=== PATIENT | male | born 1965 | race African-American/Black ===

== ENCOUNTER 2018-07-05 11:29 | Observation (INO) | payer OTHER ==
[2018-07-05 12:11] LABS: #Eosinphils 0.1 thou/uL (0.0-0.7); #Lymphocytes 1.6 thou/uL (1.20-3.40); #Monocytes 0.7 thou/uL (0.11-0.59); #Neutrophils 2.8 thou/uL (1.40-6.50); %Basophils 0.3 % (0.0-1.0); %Eosinophils 1.6 % (0.0-10.0); %Lymphocytes 30.9 % (21.0-51.0); %Monocytes 13.2 % (0.0-10.0); Mean Corpuscular HGB CONC 32.1 g/dL (32.0-36.0); Mean Corpuscular Hemoglobin 29.9 pg (27.0-31.0); Mean Corpuscular Volume 93.2 fL (78.0-98.0); Mean Platelet Volume 8.3 fL (7.4-10.4); Platelet Count 219 thou/uL (130-400); RBC Distribution Width 12.4 % (11.5-14.5); Red Blood Cell (RBC) Count 4.99 mill/uL (4.70-6.10); White Blood Cell (WBC) Count 5.3 thou/uL (4.8-10.8)
--- NOTE | 2018-07-05 12:35 | RAD ---
CHEST ONE VIEW: Indication: History of chest pain. Comparison: 07-22-12 FINDINGS: The costophrenic angles are excluded. Lungs are clear. Cardiomediastinal silhouette is within normal limits. No acute osseous abnormality is evident. IMPRESSION: No definite acute abnormality. Limitation of the exam as above. POS: [facility]
--- NOTE | 2018-07-05 12:36 | CT ---
CT OF HEAD NONCONTRAST: Indication: Syncope. FINDINGS: There is no acute intracranial mass effect or midline shift. Comparing to 02-22-10, no significant int erval detrimental change is demonstrated. IMPRESSION: No acute intracranial finding. POS: [facility]
[2018-07-05 12:53] LABS: ALT (SGPT) 341 U/L (8-55); AST (SGOT) 680 U/L (5-34); Albumin 3.4 g/dL (3.5-5.0); Alkaline Phosphatase 171 U/L (40-150); Anion Gap 18 mmol/L (10-20); BUN (Urea Nitrogen) 28 mg/dL (8.4-25.7); Bilirubin, Total 1.9 mg/dL (0.2-1.2); CK (CPK) 152 U/L (30-200); Calc. Creatinine Clearance 0 mL/min (70-130); Calcium 8.9 mg/dL (7.8-10.44); Carbon Dioxide 23 mmol/L (22-29); Chloride 105 mmol/L (98-107); Estimated GFR-MDRD 41; Globulin 4.3 g/dL (2.4-3.5); Glucose 85 mg/dL (70-105); Lipase 88 U/L (8-78); Potassium 4.5 mmol/L (3.5-5.1); Protein, Total 7.7 g/dL (6.0-8.3); Sodium 141 mmol/L (136-145)
[2018-07-05 13:04] LABS: CKMB 0.9 ng/mL (0-6.6); Troponin I Less than 0.010 ng/mL (< 0.028)
[2018-07-05] MEDS ORDERED: ISOVUE-370 76%-LOCM 1 ML ONE (13:31)
--- NOTE | 2018-07-05 13:49 | CT ---
CT ARTERIOGRAM CHEST WITH IV CONTRAST AND 3D MIP IMAGING: History: Chest pain. Dyspnea. Comparison: 08-06-11 FINDINGS: There is good contrast opacification of the pulmonary arteries and thoracic aorta with normal branchi ng of the great vessels at the aortic arch. No pleural fluid or mediastinal adenopathy. No evidence o f pneumothorax. IMPRESSION: No CT evidence of pulmonary embolus. POS: [facility]
[2018-07-05 14:06] LABS: Bilirubin Negative (Negative); Blood, Urine Negative (Negative); Clarity CLEAR (Clear); Glucose, Urine (Dipstick) Negative (Negative); Leukocyte Negative (Negative); Nitrite Negative (Negative); Protein, Urine (Dipstick) Trace mg/dL (Neg-Trace); Specific Gravity, Urine 1.011 (1.002-1.036)
--- NOTE | 2018-07-05 14:42 | PDOC.FPRHP ---
- History of Present Illness Chief Complaint: Syncope History of Present Illness: Mr Morejon is a 53yo male with pmh of Alcohol abuse, gout, CKD3, HTN and HLD presenting for syncope. Reports 2 episodes of syncope. First time was Thursday and again today. Prior to event he felt diaphoresis, weak/dizzy, lightheaded and does not remember falling. Falls were witness by family. Had mild "tremoring " of arms, did not hit his head. No hx of seizures or heart problems. He also endorses periodic stabbing substernal chest pain over the last year. Pain is nonexertional and is not currently present. Last time he had the pain was 2 days ago. Not a/w SOB or diaphoresis, resolves on its own. Pt also endorses "pain under my ribs on the right side" for the past 2 years. He drinks 12-18 beers or a large cup of liquor per day for the past 20 years. Denies tylenol use or hx of hepatitis. Does report using BC powder for pain frequently. Endorses 30lb wt loss over the last year due to decreased appetite. ED Course: 500ml NS - Allergies/Adverse Reactions Allergies Allergy/AdvReac Type Severity Reaction Status Date / Time No Known Allergies Allergy Verified 07/05/18 16:49 - Home Medications Medication Instructions Recorded Confirmed Type Allopurinol [Zyloprim] 300 mg PO QAM 07/05/18 07/05/18 History Amlodipine [Norvasc] 10 mg PO QAM 07/05/18 07/05/18 History Atorvastatin Calcium [Lipitor] 40 mg PO QAM 07/05/18 07/05/18 History Metoprolol Succinate 100 mg PO QAM 07/05/18 07/05/18 History - History PMHx: Alcohol abuse, Gout, HTN, CKD3, HLD PSHx: "Knee washout" FHx: CAD, DM Social: Denies tobacco or drug use. Endorses drinking 12-18 beers per night or a large glass of liquor, has done so for >20 years - Review of Systems General: reports: fever/chills, weight/appetite/sleep changes (endorses 30lb wt loss over last year), night sweats, fatigue Eyes: denies: eye pain, vision changes ENT: denies: nasal congestion, rhinorrhea Respiratory: denies: cough, congestion, shortness of breath Cardiovascular: reports: chest pain. denies: palpitation, edema Gastrointestinal: reports: constipation, abdominal pain. denies: nausea, vomiting, diarrhea Genitourinary: denies: dysuria, polyuria Skin: denies: lesions, jaundice Musculoskeletal: denies: pain, tenderness, swelling Neurological: denies: numbness, weakness - Vital signs BP: 140/105 HR: 102 RR: 17 Tmax: 98.3 Pox: 95% on RA Wt: 108.86kg - Physical Exam Constitutional: NAD, awake, alert and oriented, well developed HEENT: normocephalic and atraumatic, PERRLA, no scleral icterus, normal nasal mucosa, MMM, oropharynx clear Neck: supple, trachea midline Heart: RRR, no murmurs/rubs/gallops Lungs: CTAB, no respiratory distress Abdomen: soft, bowel sounds present, other (No hepatomegaly, splenomegaly Mildly tender to palpation in RUQ Neg Amanda sign) Musculoskeletal: normal structure, normal tone Neurological: no focal deficit Skin: capillary refill <2 seconds Psychiatric: normal mood and affect, good judgment and insight, intact recent and remote memory FMR H&P: Results - Labs Result Diagrams: 07/05/18 11:39 07/05/18 11:39 Lab results: WBC 5.3 thou/uL (4.8-10.8) 07/05/18 11:39 Hgb 15.0 g/dL (14.0-18.0) 07/05/18 11:39 Hct 46.5 % (42.0-52.0) 07/05/18 11:39 MCV 93.2 fL (78.0-98.0) 07/05/18 11:39 Plt Count 219 thou/uL (130-400) 07/05/18 11:39 Neutrophils % 54.0 % (42.0-75.0) 07/05/18 11:39 Sodium 141 mmol/L (136-145) 07/05/18 11:39 Potassium 4.5 mmol/L (3.5-5.1) 07/05/18 11:39 Chloride 105 mmol/L (98-107) 07/05/18 11:39 Carbon Dioxide 23 mmol/L (22-29) 07/05/18 11:39 BUN 28 mg/dL (8.4-25.7) H 07/05/18 11:39 Creatinine 2.07 mg/dL (0.6-1.3) H 07/05/18 11:39 Glucose 85 mg/dL (70-105) 07/05/18 11:39 Calcium 8.9 mg/dL (7.8-10.44) 07/05/18 11:39 Total Bilirubin 1.9 mg/dL (0.2-1.2) H 07/05/18 11:39 AST 680 U/L (5-34) H 07/05/18 11:39 ALT 341 U/L (8-55) H 07/05/18 11:39 Alkaline Phosphatase 171 U/L (40-150) H 07/05/18 11:39 Creatine Kinase 152 U/L (30-200) 07/05/18 11:39 CK-MB (CK-2) 0.9 ng/mL (0-6.6) 07/05/18 12:31 B-Natriuretic Peptide 15.5 pg/mL (0-100) 07/05/18 11:39 Serum Total Protein 7.7 g/dL (6.0-8.3) 07/05/18 11:39 Albumin 3.4 g/dL (3.5-5.0) L 07/05/18 11:39 Lipase 88 U/L (8-78) H 07/05/18 11:39 Urine Ketones Negative mg/dL (Negative) 07/05/18 13:26 Urine Blood Negative (Negative) 07/05/18 13:26 Urine Nitrite Negative (Negative) 07/05/18 13:26 Ur Leukocyte Esterase Negative (Negative) 07/05/18 13:26 - EKG Interpretation EKG: NSR - Radiology Interpretation Chest x-ray Status: report reviewed by me Additional comment: No acute abnormality CT scan - head Status: report reviewed by me Additional comment: No acute findings CT scan - chest Status: report reviewed by me Additional comment: No CT evidence of PE FMR H&P: A/P - Problem List (1) Syncope Current Visit: Yes Status: Acute Code(s): R55 - SYNCOPE AND COLLAPSE (2) Atypical chest pain Current Visit: Yes Status: Acute Code(s): R07.89 - OTHER CHEST PAIN (3) Elevated d-dimer Current Visit: Yes Status: Acute Code(s): R79.89 - OTHER SPECIFIED ABNORMAL FINDINGS OF BLOOD CHEMISTRY (4) Transaminitis Current Visit: Yes Status: Acute Code(s): R74.0 - NONSPEC ELEV OF LEVELS OF TRANSAMNS & LACTIC ACID DEHYDRGNSE (5) HTN (hypertension) Current Visit: Yes Status: Acute Code(s): I10 - ESSENTIAL (PRIMARY) HYPERTENSION (6) HLD (hyperlipidemia) Current Visit: Yes Status: Acute Code(s): E78.5 - HYPERLIPIDEMIA, UNSPECIFIED (7) CKD (chronic kidney disease) stage 3, GFR 30-59 ml/min Current Visit: Yes Status: Acute Code(s): N18.3 - CHRONIC KIDNEY DISEASE, STAGE 3 (MODERATE) (8) Gout Current Visit: Yes Status: Acute Code(s): M10.9 - GOUT, UNSPECIFIED - Plan Syncope - likely vasovagal vs orthostatic vs alcohol intoxication - Prolactin neg - Orthostatic VS ordered - Echo ordered - Will admit to tele Transaminitis - ddx includes obstructive vs viral vs alcoholic causes - RUQ US - Viral and Autoimmune hepatitis labs ordered - UDS pending Atypical Chest Pain - Trops, CKMB neg - EKG with no ST segment changes - Continue to trend trops Elevated D-dimer - CTA neg for PE Alcohol Abuse - No known hx of withdrawal - ASE protocol - Librium taper - Will obtain serum alcohol and UDS Hyperbilirubinemia - RUQ US as above CKD3 - Cr 2.03 - Continue to monitor with daily labs - Avoid nephrotoxic drugs Gout - Continue home Allopurinol HTN - Continue home Amlodipine HLD - Continue home Atorvastatin Code Status: FULL DVT ppx: Lovenox 30 FMR H&P: Upper Level - Pertinent history Kahlil Morejon is a 53 year old male with a history of gout, CKD, HLD, and tobacco abuse who presents to the ED due to having recurrent syncopal events. Pt states that he fell to his knees earlier today as he was walking to his mother's house. He states that he felt the room spin, and his knees gave out and he fell to the floor. He states that he had another fall prior to this several days ago that was similar in nature. Each of these episodes were preceded by vertiginous symptoms. He denies LOC, chest pain, palpitations, prior to the fall. No seizure activity or post-ictal state. He also complains of occasional left-sided chest pain that has been ongoing for the past several months. The pain is "sharp/stabbing. He rates it 7-10/10 in intensity. Non-exertional. No exacerbating or relieving factors. Radiates throughout his abdomen. He currently denies having this pain. Of note, Pt has an extensive alcohol abuse history and reports drinking 3 - six packs of beer every night. - Pertinent findings Vitals: T - 98.3 RR -17 P-102 BP - 140/103 O2-95% on RA wt: 109kg Physical Exam General: A&O x 3 HEENT: NCAT; EOMI no nystagmus Heart: RRR, no MRG; No reproducible anterior chest wall tenderness. Lungs: CTAB Abdomen: soft, non-tender to palpation; negative Amanda's sign. Neuro: CN II-XII intact grossly; no focal deficits; symmetric reflexes. BUN: 28 Cr: 2.07 AST: 680 ALT: 341 Alk Phos: 171 Prolactin: 12.43 Lipase: 88 CK: 152 - Plan Date/Time: 07/05/18 7172 I, Mayte Montemayor, have evaluated this patient and agree with findings/plan as outlined by internal control analyst resident. Pertinent changes/additions are listed here. Recurrent falls - possibly deconditioning vs. orthostasis vs. vertigo vs. alcohol intoxication. No structural abnormalities noted on exam. - unlikely secondary to seizures. - pt denies LOC, therefore, may not be truly syncopal. - Will order PT, orthostatic vitals. Atypical chest pain - likely GI related; may consider PPI - will continue to trend trops. Alcohol Abuse - will order ASE protocol. - Ativan taper. Elevated liver function tests - likely secondary to alcohol abuse. - will also order RUQ US. - hepatitis panel. HTN - continue home meds CKD stage III - GFR - 41 - will avoid nephrotoxic medications; may consider changing allopurinol to different agent. Hyperlipidemia - continue statin. Attending Addendum - Attending Addendum Date/Time: 07/05/18 8086 I personally evaluated the patient and discussed the management with Dr. Rinaldi I agree with the History, Examination, Assessment and Plan documented above with any addition or exceptions noted below- 53 yo male with h/o HTN, gout, CKD who presented with 2 episodes of syncope. States that first occurred on Thursday and the other today. In both instances he reports feeling light headed and weak and then fell to the ground with very brief LOC.No seizure activity or incontinence. No prior episodes. Also reports intermittent substernal chest pain with associated diaphoresis. No N/V, abdominal pain, or SOB. PMH/PSH/All/ meds reviewed and agree with residents documentation. Afebrile VSS Exam repeated by me and agree with residents findings. Labs: trop I < 0.010 x2, Cr= 2.07, AST/ALT= 680/341, EKG-NSR, no ST changes. A/P: 1) Syncope- orthostatic vs alcohol intoxication vs cardiac arrhythmia- will check echo, cardiac enzymes, orthostatic vitals. 2) Elevated transaminases - most likely secondary to alcohol. Will check hepatitis panel and RUQ USG. recheck in AM.
[2018-07-05 15:15] VITALS: BMI 29.2
[2018-07-05] MEDS ORDERED: Ondansetron ODT 4 MG TAB PO PRN (15:37)
[2018-07-05] MEDS ORDERED: Enoxaparin Sodium 30 MG/0.3 ML SYRINGE SC SCH (15:37)
[2018-07-05 16:29] LABS: Bilirubin, Direct 0.8 mg/dL (0.1-0.3); Bilirubin, Total 1.6 mg/dL (0.2-1.2)
[2018-07-05 16:34] LABS: Troponin I Less than 0.010 ng/mL (< 0.028)
[2018-07-05 16:55] LABS: HBSAg Index 0.21 S/CO (0-0.99); Hep B Core Total Ab Non-Reactive (NonReactive); Hep B Core Total Index 0.11 S/CO (0-0.79); Hep B Surf Ag Non-Reactive S/CO (NonReactive); Hep C IgG Ab Non-Reactive (NonReactive); Hep C Index 0.16 S/CO (0-0.79)
[2018-07-05] MEDS ORDERED: chlordiazePOXIDE HCl 25 MG CAP PO SCH (17:00)
[2018-07-05 17:41] LABS: Amphetamine Not Detected (NotDetected); Barbiturates Screen Not Detected (NotDetected); Benzodiazepine Screen Not Detected (NotDetected); Cocaine Metabolite Screen Not Detected (NotDetected); Medtox Control Line Valid? VALID (VALID); Medtox Reader # READER 4; Methadone Not Detected (NotDetected); Methamphetamine Not Detected (NotDetected); Opiate Screen Not Detected (NotDetected); Oxycodone Screen Not Detected (NotDetected); Phencyclidine (PCP) Not Detected (NotDetected); THC/Cannabinoid Screen Not Detected (NotDetected); Tricyclic Screen Not Detected (NotDetected)
[2018-07-05] MEDS ORDERED: Lorazepam 0.5 MG TAB PO PRN (18:36)
[2018-07-05] MEDS: Lorazepam 1 MG TAB PO SCH (19:17)
[2018-07-05 20:14] LABS: Troponin I Less than 0.010 ng/mL (< 0.028)
[2018-07-06] MEDS: Lorazepam 1 MG TAB PO SCH ×3 (03:24→18:44)
[2018-07-06 05:16] LABS: Hepatitis A IgM ABS Negative (Negative); Hepatitis A Total ABS Negative (Negative)
[2018-07-06 05:36] LABS: #Eosinphils 0.1 thou/uL (0.0-0.7); #Monocytes 0.6 thou/uL (0.11-0.59); #Neutrophils 3.1 thou/uL (1.40-6.50); %Basophils 0.8 % (0.0-1.0); %Eosinophils 1.4 % (0.0-10.0); %Lymphocytes 20.3 % (21.0-51.0); %Monocytes 12.8 % (0.0-10.0); %Neutrophils 64.6 % (42.0-75.0); Hemoglobin 14.9 g/dL (14.0-18.0); Mean Corpuscular HGB CONC 34.6 g/dL (32.0-36.0); Mean Corpuscular Hemoglobin 32.6 pg (27.0-31.0); Mean Corpuscular Volume 94.3 fL (78.0-98.0); Mean Platelet Volume 8.9 fL (7.4-10.4); Platelet Count 166 thou/uL (130-400); RBC Distribution Width 12.3 % (11.5-14.5); Red Blood Cell (RBC) Count 4.57 mill/uL (4.70-6.10); White Blood Cell (WBC) Count 4.8 thou/uL (4.8-10.8)
[2018-07-06 06:37] LABS: ALT (SGPT) 435 U/L (8-55); AST (SGOT) 930 U/L (5-34); Albumin 3.1 g/dL (3.5-5.0); Alkaline Phosphatase 169 U/L (40-150); Anion Gap 18 mmol/L (10-20); BUN (Urea Nitrogen) 17 mg/dL (8.4-25.7); Bilirubin, Total 1.9 mg/dL (0.2-1.2); Calc. Creatinine Clearance 78 mL/min (70-130); Calcium 8.8 mg/dL (7.8-10.44); Carbon Dioxide 20 mmol/L (22-29); Chloride 101 mmol/L (98-107); Estimated GFR-MDRD 55; Globulin 5.7 g/dL (2.4-3.5); Glucose 98 mg/dL (70-105); Potassium 4.5 mmol/L (3.5-5.1); Protein, Total 8.8 g/dL (6.0-8.3); Sodium 134 mmol/L (136-145)
--- NOTE | 2018-07-06 07:37 | PDOC.FM ---
- Subjective Subjective: Patient refused 2 doses of Ativan overnight. He does not feel that he needs this medication despite explaining the risks of withdrawal from alcohol. He is agreeable to start taking it. Reports having episode of nausea, chills and vomiting overnight. Endorses RUQ pain. - Objective MAR Reviewed: Yes Vital Signs & Weight: Vital Signs (12 hours) Temp Pulse Resp BP BP BP BP 07/06/18 04:00 98.8 F 82 18 134/80 07/06/18 00:25 135/76 120/81 132/91 H 07/05/18 23:16 98.9 F 88 18 129/87 Pulse Ox 07/06/18 04:00 96 07/06/18 00:25 07/05/18 23:16 96 Weight Weight 104.326 kg I&O: 07/05/18 07/06/18 07/07/18 06:59 06:59 06:59 Intake Total 480 Balance 480 Result Diagrams: 07/06/18 04:42 07/06/18 04:42 <Jaimie Rinaldi - Last Filed: 07/06/18 11:55> - Objective Vital Signs & Weight: Vital Signs (12 hours) Temp Pulse Resp BP BP BP Pulse Ox 07/06/18 11:49 98.1 F 76 16 117/77 96 07/06/18 09:19 87 145/95 H 07/06/18 08:00 145/95 H 07/06/18 07:15 98.3 F 88 20 126/66 95 07/06/18 04:00 98.8 F 82 18 134/80 96 Weight Weight 104.326 kg I&O: 07/05/18 07/06/18 07/07/18 06:59 06:59 06:59 Intake Total 480 Balance 480 Result Diagrams: 07/06/18 04:42 07/06/18 04:42 <Duke Mclaughlin - Last Filed: 07/06/18 12:45> Phys Exam - Physical Examination Constitutional: NAD Neck: supple Respiratory: no wheezing, clear to auscultation bilateral Cardiovascular: RRR, no significant murmur Gastrointestinal: soft, positive bowel sounds mildy tender over RUQ Musculoskeletal: no edema, pulses present Neurological: non-focal Psychiatric: normal affect, A&O x 3 Skin: cap refill <2 seconds <Jaimie Rinaldi Filed: 07/06/18 11:55> Dx/Plan (1) Syncope Code(s): R55 - SYNCOPE AND COLLAPSE Status: Acute (2) Atypical chest pain Code(s): R07.89 - OTHER CHEST PAIN Status: Acute (3) Elevated d-dimer Code(s): R79.89 - OTHER SPECIFIED ABNORMAL FINDINGS OF BLOOD CHEMISTRY Status : Acute (4) Transaminitis Code(s): R74.0 - NONSPEC ELEV OF LEVELS OF TRANSAMNS & LACTIC ACID DEHYDRGNSE Status: Acute (5) HTN (hypertension) Code(s): I10 - ESSENTIAL (PRIMARY) HYPERTENSION Status: Acute (6) HLD (hyperlipidemia) Code(s): E78.5 - HYPERLIPIDEMIA, UNSPECIFIED Status: Acute (7) CKD (chronic kidney disease) stage 3, GFR 30-59 ml/min Code(s): N18.3 - CHRONIC KIDNEY DISEASE, STAGE 3 (MODERATE) Status: Acute (8) Gout Code(s): M10.9 - GOUT, UNSPECIFIED Status: Acute - Plan Plan: Syncope - likely vasovagal vs orthostatic vs alcohol intoxication - Prolactin neg - Orthostatic VS ordered - Echo ordered - Will admit to tele Transaminitis - ddx includes obstructive vs viral vs alcoholic causes - RUQ US read pending - Viral hepatitis panel neg - Autoimmune hepatitis labs pending - UDS neg - Serum alcohol 122 Atypical Chest Pain - EKG with no ST segment changes - Trops neg x3, CKMB neg Elevated D-dimer - CTA neg for PE Alcohol Abuse - No known hx of withdrawal - ASE protocol - Scheduled Ativan 2mg q8hr, 1mg PRN - Pt refused first 2 doses, educated on risks of withdrawal, will transition to IV if refuses again - UDS neg - Serum alcohol 122 Hyperbilirubinemia - RUQ US as above CKD3 - Cr 2.03-> 1.61, BUN improving - Continue to monitor with daily labs - Avoid nephrotoxic drugs Gout - Continue home Allopurinol HTN - Continue home Amlodipine HLD - Continue home Atorvastatin Code Status: FULL DVT ppx: Lovenox 30 <Rinaldi,Jaimie - Last Filed: 07/06/18 11:55> Attending Addendum - Attending Addendum Date/Time: 07/06/18 1243 I personally evaluated the patient and discussed the management with Dr. Rinaldi. I agree with the History, Examination, Assessment and Plan documented above with any addition or exceptions noted below. Patient here for recurrent syncope and we are working that up. Could be related to EtOH intoxication. He appears to have alcoholic hepatitis and will work that up further to ensure no other causes and evaluate his liver function. Continue supportive care and ASE for withdrawal symptoms. <Duke Mclaughlin - Last Filed: 07/06/18 12:45>
[2018-07-06] MEDS: Amlodipine 10 MG TAB PO SCH (09:19)
[2018-07-06] MEDS: Allopurinol 300 MG TAB PO SCH (09:19)
[2018-07-06] MEDS: Atorvastatin Calcium 40 MG TAB PO SCH (09:19)
--- NOTE | 2018-07-06 09:52 | ULT ---
RIGHT UPPER QUADRANT ULTRASOUND: Date: 07/06/18 INDICATOIN: Transaminitis, right upper abdominal pain. History of chronic renal disease. FINDINGS: There is prominent size of the liver with increased echogenicity. No discrete hepatic lesion is seen. There is no acute gallbladder pathology. Common duct is normal, measuring 3-4 mm. No ascites is visu alized. IMPRESSION: 1. Findings which may be related to hepatic steatosis. 2. No acute gallbladder pathology. POS: [facility]
[2018-07-06 11:56] LABS: INR-International Normal Ratio 1.1; PTT 29.7 SEC (22.9-36.1); Prothrombin Time 14.3 SEC (12.0-14.7)
[2018-07-07] MEDS: Lorazepam 1 MG TAB PO SCH ×2 (03:03→11:59)
[2018-07-07 05:24] LABS: ALT (SGPT) 309 U/L (8-55); AST (SGOT) 385 U/L (5-34); Albumin 2.7 g/dL (3.5-5.0); Alkaline Phosphatase 177 U/L (40-150); Anion Gap 10 mmol/L (10-20); BUN (Urea Nitrogen) 11 mg/dL (8.4-25.7); Bilirubin, Total 1.6 mg/dL (0.2-1.2); Calc. Creatinine Clearance 88 mL/min (70-130); Calcium 8.5 mg/dL (7.8-10.44); Carbon Dioxide 25 mmol/L (22-29); Chloride 104 mmol/L (98-107); Estimated GFR-MDRD 61; Globulin 3.8 g/dL (2.4-3.5); Glucose 115 mg/dL (70-105); Potassium 4.1 mmol/L (3.5-5.1); Protein, Total 6.5 g/dL (6.0-8.3); Sodium 135 mmol/L (136-145)
--- NOTE | 2018-07-07 06:32 | PDOC.FM ---
- Subjective Subjective: Patient expresses desire to quit drinking and would like to be sent home with medications to prevent withdraw. Reports improvement in abdominal pain. No episodes of syncope. No complaints or questions. - Objective MAR Reviewed: Yes Vital Signs & Weight: Vital Signs (12 hours) Temp Pulse Resp BP BP Pulse Ox 07/07/18 04:00 102/77 07/07/18 02:59 98.1 F 73 20 102/77 95 07/07/18 00:01 112/75 07/06/18 23:22 98.8 F 85 12 112/75 95 07/06/18 22:03 129/84 07/06/18 19:52 98.1 F 74 12 129/84 97 Weight Weight 105.732 kg I&O: 07/05/18 07/06/18 07/07/18 06:59 06:59 06:59 Intake Total 480 450 Balance 480 450 Result Diagrams: 07/06/18 04:42 07/07/18 04:31 <Jaimie Rinaldi - Last Filed: 07/07/18 11:16> - Objective Vital Signs & Weight: Vital Signs (12 hours) Temp Pulse Resp BP BP Pulse Ox 07/07/18 08:00 113/85 07/07/18 07:45 98.1 F 84 16 113/85 95 07/07/18 04:00 102/77 07/07/18 02:59 98.1 F 73 20 102/77 95 07/07/18 00:01 112/75 Weight Weight 105.732 kg I&O: 07/06/18 07/07/18 07/08/18 06:59 06:59 06:59 Intake Total 480 450 Balance 480 450 Result Diagrams: 07/06/18 04:42 07/07/18 04:31 <Duke Mclaughlin - Last Filed: 07/07/18 11:36> Phys Exam - Physical Examination Constitutional: NAD Neck: supple Respiratory: no wheezing, clear to auscultation bilateral Cardiovascular: RRR, no significant murmur Gastrointestinal: soft, non-tender, positive bowel sounds Musculoskeletal: no edema Psychiatric: normal affect, A&O x 3 <Jaimie Rinaldi - Last Filed: 07/07/18 11:16> Dx/Plan (1) Syncope Code(s): R55 - SYNCOPE AND COLLAPSE Status: Acute (2) Atypical chest pain Code(s): R07.89 - OTHER CHEST PAIN Status: Acute (3) Elevated d-dimer Code(s): R79.89 - OTHER SPECIFIED ABNORMAL FINDINGS OF BLOOD CHEMISTRY Status : Acute (4) Transaminitis Code(s): R74.0 - NONSPEC ELEV OF LEVELS OF TRANSAMNS & LACTIC ACID DEHYDRGNSE Status: Acute (5) HTN (hypertension) Code(s): I10 - ESSENTIAL (PRIMARY) HYPERTENSION Status: Acute (6) HLD (hyperlipidemia) Code(s): E78.5 - HYPERLIPIDEMIA, UNSPECIFIED Status: Acute (7) CKD (chronic kidney disease) stage 3, GFR 30-59 ml/min Code(s): N18.3 - CHRONIC KIDNEY DISEASE, STAGE 3 (MODERATE) Status: Acute (8) Gout Code(s): M10.9 - GOUT, UNSPECIFIED Status: Acute - Plan Plan: Syncope/Fall likely 2/2 to alcohol intoxication - Prolactin neg - Orthostatic VS negative - Echo indicates HFpEF HFpEF - New diagnosis - Echo: EF 60-65% diastolic dysfunction. Mild LA dilation, mild MR/TR. - F/u with PCP Alcoholic Hepatitis, improving - likely 2/2 alcohol abuse - RUQ US: hepatic steatosis - Viral hepatitis panel neg - Autoimmune hepatitis labs pending - UDS neg - Initial Serum alcohol 122 Atypical Chest Pain, resolved - EKG with no ST segment changes - Trops neg x3, CKMB neg Elevated D-dimer - CTA neg for PE Alcohol Abuse - ASE protocol - Scheduled Ativan 2mg q8hr, 1mg PRN - UDS neg - Initial Serum alcohol 122 - Pt expresses interest in quitting Hyperbilirubinemia - RUQ US as above CKD3 - Cr 2.03-> 1.61, BUN improving - Continue to monitor with daily labs - Avoid nephrotoxic drugs Gout - Continue home Allopurinol HTN - Continue home Amlodipine HLD - Continue home Atorvastatin Code Status: FULL DVT ppx: Lovenox 30 <Jaimie Rinaldi - Last Filed: 07/07/18 11:16> Attending Addendum - Attending Addendum Date/Time: 07/07/18 4636 I personally evaluated the patient and discussed the management with Dr. Rinaldi. I agree with the History, Examination, Assessment and Plan documented above with any addition or exceptions noted below. Patient here for syncope and likely alcoholic hepatitis. His LFTs are downtrending and he feels well. No telemetry events and echo did not show major structural disease. He now reports that he does not want medications for taper, and was educated that he needs to quit drinking alcohol to prevent oysterman liver disease. He will follow up with PCP for lab recheck in a few days. <Duke Mclaughlin - Last Filed: 07/07/18 11:36>
[2018-07-07] MEDS: Atorvastatin Calcium 40 MG TAB PO SCH (08:55)
[2018-07-07] MEDS: Amlodipine 10 MG TAB PO SCH (08:55)
[2018-07-07] MEDS: Allopurinol 300 MG TAB PO SCH (08:55)
[2018-07-07] MEDS ORDERED: chlordiazePOXIDE HCl 5 MG CAP PO SCH (09:00)
[2018-07-07 12:01] VITALS: TEMP 98.3
[2018-07-07 13:03] VITALS: BP 120/87
--- NOTE | 2018-07-07 13:16 | DIS-2 ---
DATE OF ADMISSION: 07/05/2018 DATE OF DISCHARGE: 07/07/2018 RESIDENT: Dr. Jaimie Rinaldi ADMITTING ATTENDING: Dr. Rose Mary Shelton DISCHARGE ATTENDING: Dr. Duke Mclaughlin CONSULTATIONS: None. PROCEDURES: 1. Chest x-ray, no definite acute abnormality, limitation of the exam. 2. Brain CT: No acute intracranial finding. 3. Chest thorax CTA. No CT evidence of PE. 4. Abdominal ultrasound findings of hepatic steatosis, no acute gallbladder pathology. 5. Echocardiogram report; EF is 60-65%, diastolic dysfunction. Mildly dilated left atrium. Mild mitral and tricuspid regurgitation. PRIMARY DIAGNOSES: 1. Fall, likely secondary to alcohol intoxication. 2. Alcoholic hepatitis, improving. SECONDARY DIAGNOSES: 1. Heart failure with preserved ejection fraction. 2. Atypical chest pain, resolved. 3. Elevated D-dimer. 4. Alcohol abuse. 5. Hyperbilirubinemia. 6. Chronic kidney disease 3. 7. Gout. 8. Hypertension. 9. Hyperlipidemia. DISCHARGE MEDICATIONS: 1. Allopurinol 300 mg q.a.m. 2. Amlodipine 10 mg q.a.m. 3. Atorvastatin 40 mg q.a.m. 4. Metoprolol 100 mg q.a.m. DISCONTINUED MEDICATIONS: None. HISTORY OF PRESENT ILLNESS AND HOSPITAL COURSE: Mr. Morejon is a 53-year-old male who came in due to syncope. He had a negative prolactin. Orthostatic vital signs were negative. He had a serum alcohol level of 122 at admission with a negative UDS. He has a long history of alcohol abuse. Echocardiogram was obtained to rule out structural causes of syncope that indicated heart failure with preserved ejection fraction. He was monitored on tele with no signs of arrhythmia. His troponin's were negative x3. CK-MB was 0.9. On labs at admission, he was noted to have an AST 680, ALT 341, it peaked at AST 930, ALT 435 and was down trending at 385 and 309 respectively at discharge. His total bilirubin was 1.9 at admission. Discharge bilirubin 1.6. Viral hepatitis & Autoimmune hepatitis labs neg. Right upper quadrant ultrasound showing hepatic steatosis. Discussion with patient over his need to quit drinking. The patient is agreeable to start going to AA meetings. He reports no history of withdrawal in the past. His discriminate function was noted to be 12.5. Good prognosis. He will need an LFT recheck in the outpatient setting after discharge. He was found to have heart failure with preserved ejection fraction on echocardiogram. This is a new diagnosis for him. The EF was noted to be 60-65 % with diastolic dysfunction, mild LA dilation and mild mitral regurg and tricuspid regurgitation. His atypical chest pain resolved. EKG showed no ST segment changes. His troponin's were negative x3. CK-MB was negative. He was noted to have an elevated D-dimer of 1.11. CTA was performed in the ED that was negative for any signs of pulmonary embolism. Due to his history of drinking reported 12-18 beers per night or if not beer, he would drink a large cup of liquor for the last 20 years daily. He was started on scheduled Ativan 2 mg q.8h. was 1 mg available for p.r.n. He was put on the ASE protocol. Notably, UDS was negative and his serum alcohol was 122. The patient expresses interest in quitting and this can be followed up outpatient. His chronic kidney disease 3, creatinine initially was 2.03 on admission, it down trended to 1.61. He has also has chronic conditions of gout , hypertension, and hyperlipidemia. His home medications were continued and these were stable throughout the course of his stay. DISPOSITION: Stable. DISCHARGE INSTRUCTIONS: 1. Location: Home. 2. Diet: Heart healthy. 3. Activity: No restrictions. 4. Followup: Follow up with PCP in 3-7 days. [facility]
[2018-07-07 15:05] LABS: ANA Symphony (Qualitative) Negative (Negative); dsDNA IgG Antibody 0.9 IU/mL (<10 Negative)
[2018-07-07 15:44] LABS: EliA Vaculitis New Method **** NEW METHOD ****; Mitochondrial Ab 1.1 U/mL (<4 Negative)
[2018-07-07 16:15] LABS: Smooth Muscle Total ABS 13 Units (0-19)
[2018-07-08] MEDS ORDERED: chlordiazePOXIDE HCl 5 MG CAP PO SCH (09:00)
== END 2018-07-07 13:47 | disposition home or self-care (01) ==
LOC: ERS 11:29 → 2SW 14:57
PROVIDERS: ADMIT Student in an Organized Health Care Education/Training Program; ATTEND Student in an Organized Health Care Education/Training Program
DX: R55 Syncope and collapse (principal); F10.129 Alcohol abuse with intoxication, unspecified; K70.10 Alcoholic hepatitis without ascites; R07.89 Other chest pain; I13.0 Hypertensive heart and chronic kidney disease with heart failure and stage 1 through stage 4 chronic kidney disease, or unspecified chronic kidney disease; N18.3 Chronic kidney disease, stage 3 (moderate); I50.9 Heart failure, unspecified; E78.5 Hyperlipidemia, unspecified; M10.9 Gout, unspecified; Z79.899 Other long term (current) drug therapy
CPT/HCPCS: 36415; 70450; 71045; 71275; 76705; 80053; 80306; 80307; 81003; 82247; 82550; 82553; 83516; 83690; 83880; 84146; 84484; 85025; 85379; 85610; 85730; 86038; 86225; 86704; 86709; 86803; 87340; 87350; 93005; 93306; 96360; 96372; G0378; G8978-GP-CJ; G8979-GP-CI; J1650